=== PATIENT | female | born 1995 | race Caucasian/White ===

== ENCOUNTER 2018-05-02 10:27 | Emergency (ER) | payer OTHER, BC ==
[~2018-05-02] VITALS: Ht 160 cm; Wt 61.4 kg
[~2018-05-02 10:27] MED LIST: SINGULAIR4 MG PO
[2018-05-02 10:33] VITALS: BP 117/71; PULSE 94; TEMP 99.3
[2018-05-02] MEDS ORDERED: SYNTHROID0.05 MG/TA PO (10:41)
[2018-05-02] MEDS ORDERED: FLEXERIL 1010 MG/TAB PO (10:56)
== END 2018-05-02 11:33 | disposition home or self-care (01) ==
LOC: COL.ER 10:27
DX: M25.562 Pain in left knee (principal); E03.9 Hypothyroidism, unspecified; V43.52XA Car driver injured in collision with other type car in traffic accident, initial encounter
CPT/HCPCS: J1885; J2360

== ENCOUNTER → 2018-12-15 | Outpatient (CLI) | payer BC ==
[~2018-12-15] MED LIST changes: +FLEXERIL 1010 MG/TAB PO; +SYNTHROID0.05 MG/TA PO
== END ==
LOC: COL.RAD 07:18
DX: N30.20 Other chronic cystitis without hematuria (principal); N39.0 Urinary tract infection, site not specified
CPT/HCPCS: Q9967